=== PATIENT | male | born 1940 | race Caucasian/White ===

== ENCOUNTER 2016-09-23 22:35 | Emergency (ER) | payer MEDICARE ==
[2016-09-23] MEDS ORDERED: EPINEPHrine INJ 0.1 MG/ML 10 ML SYG IV ONE ×4 (22:36→22:46)
[2016-09-23 23:07] VITALS: BP 00/00; O2SAT 96
--- NOTE | 2016-09-23 23:08 | ED.PDOC ---
History of Present Illness - General Chief Complaint: Cardiac Respiratory Arrest Stated Complaint: cardiac arrest Time Seen by Provider: 09/23/16 23:02 Source: RN notes reviewed, Vital Signs reviewed, family, EMS Exam Limitations: clinical condition - History of Present Illness Initial Comments: This 76 y/o male was brought into the ED by EMS in cardiac arrest with ACLS in progress. Patient's said he had some severe back pain and went to go lay down in his bed. She thought she heard him throwing up, and went into the bedroom to him vomiting. He then lost consciousness. Patient's called EMS at 2144. Police arrived on the scene and started CPR at 215. EMS arrived on the scene at 2155. They placed a De airway and obtained vascular access. Patient was in asystole at the time. He received 3 doses of epinephrine and one dose of sodium bicarbonate prior to getting to the ED. Timing/Duration: other - See comments Allergies/Adverse Reactions: Allergies NO KNOWN ALLERGY Allergy (Verified 09/23/16 23:06) Home Medications: Ambulatory Orders Cardizem 09/23/16 Lisinopril 09/23/16 Pravastatin Sodium 09/23/16 Review of Systems - Review of Systems Unable to Obtain Due To: intubated Family Medical History - Family History Mother Family History: Unknown Physical Exam - Physical Exam General Appearance: Other - Intubated. Eye Exam: bilateral abnormal pupil - fixed Respiratory: other - No spontaneous respiration Cardiovascular/Chest: other - No cardiac rhythm Peripheral Pulses: radial,right: 0, radial,left: 0, femoral,right: 0, femoral, left: 0 Gastrointestinal/Abdominal: other - Mildly distended. Unable to insert NG tube due to De airway. Skin Exam: cyanosis, mottled Progress - Results/Orders Results/Orders: Patient arrived at the ED at 2234 with CPR in progress. Procedures - Additional Procedures Additional Procedures: CPR Progress: CPR was performed in the ED for 16 minutes. At that time, Patient had been asystolic for 66 minutes, with CPR being performed for 58 minutes. In the ED, Patient was given four doses of epinephrine. Patient's rhythm continued in asystole with no pulse. The code was called at 2250. Patient's arrived shortly thereafter, and was informed that we were unable to resuscitate her . She and Patient's brother went into the room to be with Patient. Departure - Departure Clinical Impression: Cardiac arrest Disposition: Home Medications: Ambulatory Orders Cardizem 09/23/16 Lisinopril 09/23/16 Pravastatin Sodium 09/23/16 Critical Care Note - Critical Care Note Total Time (mins): 15
== END 2016-09-23 22:50 | disposition expired ==
LOC: EDBD 22:35 → ER 22:35
DX: I46.9 Cardiac arrest, cause unspecified (principal)